=== PATIENT | female | born 2000 | race African-American/Black ===

== ENCOUNTER 2023-06-10 20:45 | Outpatient (REF) | payer OTHER, SELFPAY ==
[2023-06-14 14:11] LABS: Age Gdln ACOG Testing Note (.); IGP, rfx Aptima HPV ASCU Note (.)
== END 2023-06-10 20:46 | disposition home or self-care (01) ==
LOC: LAB 20:45
PROVIDERS: PCP Family Medicine; Visit Provider Obstetrics & Gynecology
DX: Z01.419 Encounter for gynecological examination (general) (routine) without abnormal findings (principal)
CPT/HCPCS: G0145

== ENCOUNTER 2024-07-27 20:20 | Outpatient (REF) | payer OTHER, SELFPAY ==
--- OUTSIDE RECORDS SUMMARY | 2024-07-27 20:25 | XMS_ITS | CCD ---
Author Organization [facility] Care Team Providers Care Life Sciences Instructor Name Role Phone RAMU BEARD Admitting Unavailable RAMU BEARD Attending Unavailable GREGORY ROBBINS Primary Care Unavailable RAMU BEARD Consulting Unavailable CHASE CONNOLLY Consulting Unavailable Rachael Stringer Attending Unavailable Rachael Stringer Admitting Unavailable REGINA Stringer Attending Provider Gregory Robbins MD Primary Care Provider NOHEMI BEAR Attending Unavailable GREGORY ROBBINS Attending Unavailable GREGORY ROBBINS Attending Unavailable GREGORY ROBBINS Attending Unavailable GREGORY ROBBINS Attending Unavailable GREGORY ROBBINS Attending Unavailable Medications Current Medications Medication Drug Class(es) Dates Sig (Normalized) Sig (Original) drospirenone 3 mg / ethinyl estradiol 0.02 mg oral tablet (8 sources) Progestin, Estrogen Start: 02-17-2024 drospirenone-ethi nyl estradiol (Myranda, Gianvi) 3-0.02 MG tablet Indications: Encounter for female family planning counseling Take 1 tablet by mouth Daily 84 tablet 3 02/17/2024 Active fluconazole 150 mg oral tablet (1 source) Azole Antifungal Start: 02-23-2024 Fluconazole Active 150 MG PO Q3D 2 0 February 23, 2024 12:00am may repeat x 1 in 3 days if needed hydrOXYzine hydrochloride 25 mg oral tablet (10 sources) Antihistamine take 1 tablet by mouth four times daily as needed hydrOXYzine HCl (Atarax) 25 MG tablet Take 25 mg by mouth 4 (four) times a day as needed for itching Active Norgestimate-Ethinyl Estradiol (Tri-Lo-Sarita) 0.18/0.215/0.25 mg-25 mcg tablet (2 sources) Start: 02-23-2024 take 1 tablet by mouth once daily Norgestimate-Ethi nyl Estradiol (Tri-Lo-Sarita) 0.18/0.215/0.25 mg-25 mcg tablet Active TAB PO Daily February 23, 2024 12:00am omeprazole 20 mg delayed release oral capsule (6 sources) Proton Pump Inhibitor Start: 02-23-2024 take 20 mg by mouth once daily Omeprazole Active 20 MG PO Daily February 23, 2024 12:00am Start: 10-10-2023 End: 02-17-2024 take 1 capsule by mouth before mealtime omeprazole (PriLOSEC) [address] capsule Indications: Chronic superficial 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 Take 1 capsule (40 mg) by mouth in the morning. Take before meals. Do not crush or chew.. 30 capsule 3 10/10/2023 02/17/2024 Discontinued phenazopyridine hydrochloride 200 mg oral tablet (1 source) Start: 02-23-2024 take 1 tablet by mouth three times daily Phenazopyridine (Pyridium) 200 mg tablet Active 200 MG PO Three times daily 01 20February 23, 2024 12:00am phentermine hydrochloride 37.5 mg oral tablet (16 sources) Sympathomimetic Amine Anorectic Start: 11-15-2023 End: 06-08-2024 take 30-30.9 tablets by mouth before mealtime phentermine (Adipex-P) 37.5 MG tablet Indications: Class 1 obesity due to excess calories without serious comorbidity with body mass index (BMI) of 30.0 to 30.9 in adult Take 1 tablet (37.5 mg) by mouth in the morning. Take before meals. 30 tablet 04/15/2024 06/08/2024 Discontinued sulfamethoxazole 800 mg / trimethoprim 160 mg oral tablet (1 source) Dihydrofolate Reductase Inhibitor Antibacterial, Sulfonamide Antimicrobial Start: 02-23-2024 take 1 tablet by mouth every twelve hours Sulfamethoxazole-Tr imethoprim Active 1 TAB PO Every 12 hours 02 21February 23, 2024 12:00am Completed/Discontinued Medications Medication Drug Class(es) Dates Sig (Normalized) Sig (Original) Ethinyl Estradiol / norgestimate (5 sources) Progestin, Estrogen Start: 01-23-2024 End: 02-17-2024 take 1 tablet by mouth once daily norgestimate-ethiny l estradiol (Rup-Cx-Cchzzyey) 0.18/0.215/0.25 MG-25 MCG tablet Indications: Encounter for female family planning counseling Take 1 tablet by mouth Daily 28 tablet 12 01/23/2024 02/17/2024 Discontinued Start: 01-23-2024 take 1 tablet by nick th once daily norgestimate-ethinyl estradiol (Tuc-Rn-Kphfccxm) 0.18/0.215/0.25 MG-25 MCG tablet Indications: Encounter for female family planning counseling Take 1 tablet by mouth Daily 28 tablet 12 01/23/2024 Active End: 01-23-2024 take 1 tablet by mouth in the morning norgestimate-ethinyl estradiol (Mlz-Pa-Hdggiagl) 0.18/0.215/0.25 MG-25 MCG tablet Take 1 tablet by mouth in the morning. 01/23/2024 Discontinued (Reorder) Problems Active Problems Problem Classification Problem Date Documented Da te Episodic/Chronic Anxiety disorders (16 sources) Generalized anxiety disorder; Translations: [Generalized anxiety disorder] Onset: 06-03-2023 06-03-2023 Chronic Gastritis and duodenitis (12 sources) Chronic superficial gastritis; Translations: [Chronic superficial 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] Onset: 10-10-2023 10-10-2023 Chronic Genitourinary symptoms and ill-defined conditions (1 source) Dysuria; Translations: [Dysuria] Onset: 02-23-2024 Episodic Other nutritional; endocrine; and metabolic disorders (7 sources) Body mass index 30+ - obesity; Translations: [Obesity, unspecified] Onset: 10-10-2023 10-10-2023 Chronic Other nutritional; endocrine; and metabolic disorders (5 sources) Obesity caused by energy imbalance; Translations: [Class 1 obesity due to excess calories without serious comorbidity with body mass index (BMI) of 30.0 to 30.9 in adult] Onset: 10-10-2023 04-15-2024 Chronic Other nutritional; endocrine; and metabolic disorders (4 sources) Body mass index 25-29 - overweight; Translations: [Overweight] Onset: 10-10-2023 06-08-2024 Episodic Urinary tract infections (2 sources) Acute urinary tract infection; Translations: [Urinary tract infection, site not specified] 02-23-2024 Episodic Past or Other Problems Problem Classification Problem Date Documented Da te Episodic/Chronic Abdominal pain (14 sources) Epigastric pain; Translations: [Epigastric discomfort] Onset: 07-02-2018 Resolved: 02-17-2024 02-17-2024 Episodic Contraceptive and procreative management (11 sources) Patient encounter status; Translations: [Encounter for other general counseling and advice on contraception] Onset: 02-17-2024 02-17-2024 Episodic Mood disorders (10 sources) Recurrent major depression in full remission; Translations: [Major depressive disorder, recurrent, in full remission] Onset: 06-03-2023 Resolved: 11-15-2023 11-15-2023 Chronic Other gastrointestinal disorders (1 source) Diarrhea, unspecified; Translations: [DIARRHEA UNSPECIFIED] Onset: 07-08-2018 Episodic Other nutritional; endocrine; and metabolic disorders (1 source) Abnormal weight loss; Translations: [ABNORMAL WEIGHT LOSS] Onset: 07-08-2018 Episodic Results Test Name Value Interpretation Reference Range Facil ity Urine Cultureon 02-23-2024 Bacteria identified Cx Nom (U) 20,000 colonies/ml mixed bacterial skin contaminants including mixed gram negative bacilli - 2 Days PERFORMED BY: [place] [address] PATHOLOGIST FORESTRY PILOT FLACO HUNTER M.D. Normal [facility] Comment on above: Performed By: #### C UU #### [address] PREG HCG QUALon 07-02-2018 , QUAL Negative Normal NEGATIVE [facility] Comment on above: Performed By: #### P REG #### [facility] [address] [address] Bia Guillaume Vital Signs Date Time Vital Sign Value Performing Clinician Facility 06-08-2024 10:02-0500 Body height 149.9 cm Gregory Robbins MD Work Phone: [facility] 06-08-2024 10:02-0500 Body mass index (BMI) [Ratio] 29.89 kg/m2 Gregory Robbins MD Work Phone: [facility] 01-20-2025 10:02-0500 Body temperature 97.11 [degF] Gregory Robbins MD Work Phone: [facility] 06-08-2024 10:02-0500 Body weight 67.13 kg Gregory Robbins MD Work Phone: [facility] 06-08-2024 10:02-0500 Diastolic blood pressure 68 mm[Hg] Gregory Robbins MD Work Phone: [facility] 06-08-2024 10:02-0500 Heart rate 101 /min Gregory Robbins MD Work Phone: [facility] 06-08-2024 10:02-0500 Respiratory rate 16 /min Gregory Robbins MD Work Phone: [facility] 06-08-2024 10:02-0500 SaO2% (BldA) [Mass fraction] 99 % Gregory Robbins MD Work Phone: [facility] 06-08-2024 10:02-0500 Systolic blood pressure 118 mm[Hg] Gregory Robbins MD Work Phone: [facility] 04-15-2024 09:41-0500 Body height 149.9 cm Gregory Robbins MD Work Phone: [facility] 04-15-2024 09:41-0500 Body mass index (BMI) [Ratio] 29.08 kg/m2 Gregory Robbins MD Work Phone: [facility] 04-15-2024 09:41-0500 Body temperature 97.5 [degF] Gregory Robbins MD Work Phone: [facility] 04-15-2024 09:41-0500 Body weight 65.32 kg Gregory Robbins MD Work Phone: [facility] 04-15-2024 09:41-0500 Diastolic blood pressure 60 mm[Hg] Gregory Robbins MD Work Phone: [facility] 04-15-2024 09:41-0500 Heart rate 94 /min Gregory Robbins MD Work Phone: [facility] 04-15-2024 09:41-0500 Respiratory rate 20 /min Gregory Robbins MD Work Phone: [facility] 04-15-2024 09:41-0500 SaO2% (BldA) [Mass fraction] 99 % Gregory Robbins MD Work Phone: [facility] 04-15-2024 09:41-0500 Systolic blood pressure 110 mm[Hg] Gregory Robbins MD Work Phone: [facility] 02-23-2024 14:28-0400 Body height 149.86 cm [facility] 02-23-2024 14:28-0400 Body mass index (BMI) [Ratio] 29.1 kg/m2 [facility] 02-23-2024 14:28-0400 Body temperature 98 [degF] [facility] 02-23-2024 14:28-0400 Body weight 65.43 kg [facility] 02-23-2024 14:28-0400 Diastolic blood pressure 73 mm[Hg] [facility] 02-23-2024 14:28-0400 Heart rate 110 /min [facility] 02-23-2024 14:28-0400 SaO2% (BldA) [Mass fraction] 99 % [facility] 02-23-2024 14:28-0400 Systolic blood pressure 105 mm[Hg] [facility] 02-17-2024 14:00-0400 Body height 149.9 cm Gregory Robbins MD Work Phone: [facility] 02-17-2024 14:00-0400 Body mass index (BMI) [Ratio] 30.3 kg/m2 Gregory Robbins MD Work Phone: [facility] 02-17-2024 14:00-0400 Body temperature 97.81 [degF] Gregory Robbins MD Work Phone: [facility] 02-17-2024 14:00-0400 Body weight 68.04 kg Gregory Robbins MD Work Phone: [facility] 02-17-2024 14:00-0400 Diastolic blood pressure 68 mm[Hg] Gregory Robbins MD Work Phone: [facility] 02-17-2024 14:00-0400 Heart rate 82 /min Gregory Robbins MD Work Phone: [facility] 02-17-2024 14:00-0400 Respiratory rate 20 /min Gregory Robbins MD Work Phone: [facility] 02-17-2024 14:00-0400 SaO2% (BldA) [Mass fraction] 99 % Gregory Robbins MD Work Phone: [facility] 02-17-2024 14:00-0400 Systolic blood pressure 110 mm[Hg] Gregory Robbins MD Work Phone: [facility] Encounters Encounter Date Encounter Type Care Provider Facility Start: 06-08-2024 End: 06-08-2024 Bamboo flowsheet Gregory Robbins MD Work Phone: [facility] Start: 06-08-2024 End: 06-08-2024 Bamboo flowsheet Gregory Robbins MD Work Phone: [facility] Start: 06-08-2024 End: 06-08-2024 Office outpatient visit 15 minutes Gregory Robbins MD Work Phone: [facility] Comment on above: MICHELLE (generalized anx iety disorder) ([facility]) (Primary Dx); Overweight (BMI 25.0-29.9) Start: 06-08-2024 End: 06-08-2024 ambulatory GREGORY ROBBINS Not Available Start: 04-15-2024 End: 04-15-2024 Bamboo flowsheet Gregory Robbins MD Work Phone: [facility] Start: 04-15-2024 End: 04-15-2024 Bamboo flowsheet Gregory Robbins MD Work Phone: [facility] Start: 04-15-2024 End: 04-15-2024 Office outpatient visit 25 minutes Gregory Robbins MD Work Phone: [facility] Comment on above: MICHELLE (generalized anx iety disorder) (CMS/HCC) (Primary Dx); Class 1 obesity due to excess calories without serious comorbidity with body mass index (BMI) of 30.0 to 30.9 in adult Start: 04-15-2024 End: 04-15-2024 ambulatory GREGORY ROBBINS Not Available Start: 02-23-2024 End: 02-23-2024 Departed Referred DESKTOP PUBLISHING OPERATOR Rachael Stringer Work Phone: [facility] [place] Work Phone: Start: 02-23-2024 End: 02-23-2024 ambulatory Rachael Stringer Facility:[facility] Start: 02-23-2024 End: 02-23-2024 Patient encounter procedure [facility] Work Phone: Start: 02-17-2024 End: 02-17-2024 Bamboo flowsheet Gregory Robbins MD Work Phone: [facility] Start: 02-17-2024 End: 02-17-2024 Bamboo flowsheet Gregory Robbins MD Work Phone: [facility] Start: 02-17-2024 End: 02-17-2024 Office outpatient visit 25 minutes Gregory Robbins MD Work Phone: [facility] Comment on above: MICHELLE (generalized anx iety disorder) (CMS/HCC) (Primary Dx); Chronic superficial 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; Obesity (BMI 30-39.9); Encounter for female family planning counseling Start: 02-17-2024 End: 02-17-2024 ambulatory GREGORY ROBBINS Not Available Start: 01-23-2024 End: 01-23-2024 Orders Only Gregory Robbins MD Work Phone: [facility] Comment on above: Encounter for female family planning counseling (Primary Dx) Start: 11-15-2023 End: 11-15-2023 ambulatory GREGORY ROBBINS Not Available Start: 10-10-2023 End: 10-10-2023 ambulatory GREGORY ROBBINS Not Available Start: 06-10-2023 End: 06-10-2023 ambulatory NOHEMI MARIANELA Not Available Start: 06-03-2023 Patient encounter procedure Gregory Robbins MD Work Phone: [facility] Start: 07-02-2018 End: 07-02-2018 Patient encounter procedure RAMU BEARD Facility: Plan of Treatment Date Care Activity Detail Author Start: 12-07-2024 End: 12-07-2024 Patient encounter procedure 12/07/2024 10:00 AM EDT Office Visit [facility] [address] [place] [id number] Gregory Robbins MD [address] [place] [phone] [facility] Start: 06-08-2024 End: 06-08-2024 Patient encounter procedure [facility] Comment on above: Arrived Start: 04-15-2024 End: 04-15-2024 Patient encounter procedure 04/15/2024 1:45 PM EST Office Visit [facility] [address] [place] [phone] Gregory Robbins MD [address] [place] [phone] [facility] Start: 04-15-2024 End: 04-15-2024 Patient encounter procedure [facility] Comment on above: Arrived Start: 02-24-2024 Urine culture [facility] Start: 02-23-2024 Bacteria identified in Urine by Culture Urine Culture [facility] Start: 02-17-2024 End: 02-17-2024 Patient encounter procedure 02/17/2024 2:00 PM EDT Office Visit [facility] [address] [place] [phone] Gregory Robbins MD [address] [place] [address] Arrived [facility] Comment on above: Arrived Start: 01-19-2024 Influenza vaccination Influenz a Vaccine (#1) [facility] Urine culture [facility] Payers Date Payer Category Payer Self-pay 2023 Medicaid [employer] [facility] [id number] 2023-Present [address] [address] [place] [address] [id number] 2023 Medicaid (Managed Care) [id number]. [id number] 2023 Medicaid [id number] 2021 Private Health Insurance [id number] 2021 Private Health Insurance [id number] 2001 Unknown [id number] 2001 Unknown [id number] 2001 Unknown [id number] 2001 Unknown [id number] [id number] 2001 Unknown [id number] 2001 Unknown [id number] 1259 1977 Unknown [id number] 1959 Private Health Insurance [id number] Private Health Insurance [id number] Unknown [id number] Social History Date Type Detail Facility Start: 02-23-2024 Tobacco smoking status MDIS Ex-smoker (finding) [facility] Start: 2001 Sex Assigned At Female [facility] Start: 06-03-2023 Tobacco smoking status MDIS Never smoked tobacco [facility] Start: 06-03-2023 Tobacco use and exposure Smokeless tobacco non-user [facility] Start: 10-09-2023 End: 06-08-2024 History of Social function [facility] Start: 10-09-2023 End: 06-08-2024 Social connection and isolation panel [facility] Do you belong to any clubs or organizations such as nondenominational groups, unions, fraternal or athletic groups, or school groups? No [facility] Are you now , , , , never or living with a partner? Patient declined [facility] How often to you hav e a drink containing alcohol? 2-3 time sa week [facility] (I/We) worried wheth er (my/our) food would run out before (I/we) got money to buy more. Never true [facility] Start: 09-27-2022 Gender identity Identifies as female gender (finding) [facility] Start: 09-27-2022 Sexual orientation Choose not to disclose [facility] History of Present illness Narrative 06-08-2024 Gregory Robbins MD - 06/08/2024 10:38 AM Charleen Robbins MD - 06/08/2024 10:38 AM Charleen Robbins MD - 06/08/2024 10:15 AM EST Note Date & Type Note Facility 06-08-2024 History of Presen t illness Narrative Associated Problem(s): Overweight (BMI 25.0-29.9) Discussed proper diet and regular aerobic exercise. Recommend Weight Watchers and need to limit calories and smaller portions. Need to increase activity and regular aerobic exercise several days a week for 30 minutes at a time. Associated Problem(s): MICHELLE (generalized anxiety disorder) (CMS/HCC) Mild symptoms and continue hydroxyzine PRN. Images from the original note were not included. Subjective Patient ID: Chucky Sutherland is a 23 y.o. female who presents for Follow-up (Adipex follow up). Follow up anxiety and weight. Patient stable today. Anxiety stable. Not as stressed out or overwhelmed. Not as nervous or worry as much. Not as moctezuma or irritable. Using hydroxyzine PRN and helps when needed. Weight up 4 pounds. Not on adipex and developed anxiety with medication. Tried half but no change in appetite. Currently not active or exercising. Tries to watch diet and eat healthy. Increased fruits and vegetables. Smaller portions and limits snacking. Tries to limit total daily calories. Review of Systems Respiratory: Negative for cough, shortness of breath and wheezing. Cardiovascular: Negative for chest pain and palpitations. Gastrointestinal: Negative for abdominal pain, diarrhea, nausea and vomiting. Genitourinary: Negative for dysuria. Objective Physical Exam Constitutional: General: She is not in acute distress. Appearance: Normal appearance. HENT: Head: Normocephalic. Right Ear: Tympanic membrane normal. Left Ear: Tympanic membrane normal. Eyes: Extraocular Movements: Extraocular movements intact. Pupils: Pupils are equal, round, and reactive to light. Cardiovascular: Rate and Rhythm: Normal rate and regular rhythm. Heart sounds: No murmur heard. No friction rub. No gallop. Pulmonary: Effort: Pulmonary effort is normal. Breath sounds: Normal breath sounds. No wheezing, rhonchi or rales. Abdominal: General: Bowel sounds are normal. There is no distension. Palpations: Abdomen is soft. Tenderness: There is no abdominal tenderness. There is no guarding or rebound. Musculoskeletal: Cervical back: Neck supple. Right lower leg: No edema. Left lower leg: No edema. Neurological: Mental Status: She is alert. Assessment/Plan Problem List Items Addressed This Visit MICHELLE (generalized anxiety disorder) (CMS/HCC) - Primary Mild symptoms and continue hydroxyzine PRN. Overweight (BMI 25.0-29.9) Discussed proper diet and regular aerobic exercise. Recommend Weight Watchers and need to limit calories and smaller portions. Need to increase activity and regular aerobic exercise several days a week for 30 minutes at a time. documented in this encounter [facility] History of Present illness Narrative 04-15-2024 Gregory Robbins MD - 04/15/2024 10:16 AM Charleen Robbins MD - 04/15/2024 10:16 AM Charleen Robbins MD - 04/15/2024 9:15 AM EST Note Date & Type Note Facility 04-15-2024 History of Presen t illness Narrative Associated Problem(s): MICHELLE (generalized anxiety disorder) ([facility]) Mild symptoms and continue hydroxyzine PRN. Associated Problem(s): Class 1 obesity due to excess calories without serious comorbidity with body mass index (BMI) of 30.0 to 30.9 in adult Patient doing well with adipex and lost 6 pounds since last visit. Tolerating well with only mild dry mouth. Continue with dietary changes and less calories. Need to limit snacking and smaller portions. Continue healthier choices. Need regular aerobic exercise 30 minutes at a time 5-6 days a week. Refill for another month. OARRS reviewed. Continue meds as prescribed. If develop new or worsening symptoms contact office. Images from the original note were not included. Subjective Patient ID: Chucky Sutherland is a 23 y.o. female who presents for Follow-up (2 m). Follow up anxiety and weight. Anxiety stable. Not as stressed out or overwhelmed. Not as nervous or worry as much. Not as moctezuma or irritable. Using hydroxyzine PRN and helps. Started adipex and weight down 6 pounds. Not taking daily because causes insomnia. Did not try hydroxyzine at bedtime. Not as hungry with medication. Smaller portions and not snacking. Increased fruits and vegetables. Tries to limit total daily calories. Increased activity and walking almost daily. Review of Systems Respiratory: Negative for cough, shortness of breath and wheezing. Cardiovascular: Negative for chest pain and palpitations. Gastrointestinal: Negative for abdominal pain, diarrhea, nausea and vomiting. Genitourinary: Negative for dysuria. Objective Physical Exam Constitutional: General: She is not in acute distress. Appearance: Normal appearance. HENT: Head: Normocephalic. Right Ear: Tympanic membrane normal. Left Ear: Tympanic membrane normal. Eyes: Extraocular Movements: Extraocular movements intact. Pupils: Pupils are equal, round, and reactive to light. Cardiovascular: Rate and Rhythm: Normal rate and regular rhythm. Heart sounds: No murmur heard. No friction rub. No gallop. Pulmonary: Effort: Pulmonary effort is normal. Breath sounds: Normal breath sounds. No wheezing, rhonchi or rales. Abdominal: General: Bowel sounds are normal. There is no distension. Palpations: Abdomen is soft. Tenderness: There is no abdominal tenderness. There is no guarding or rebound. Musculoskeletal: Cervical back: Neck supple. Right lower leg: No edema. Left lower leg: No edema. Neurological: Mental Status: She is alert. Assessment/Plan Problem List Items Addressed This Visit MICHELLE (generalized anxiety disorder) ([facility]) - Primary Mild symptoms and continue hydroxyzine PRN. Class 1 obesity due to excess calories without serious comorbidity with body mass index (BMI) of 30.0 to 30.9 in adult Patient doing well with adipex and lost 6 pounds since last visit. Tolerating well with only mild dry mouth. Continue with dietary changes and less calories. Need to limit snacking and smaller portions. Continue healthier choices. Need regular aerobic exercise 30 minutes at a time 5-6 days a week. Refill for another month. OARRS reviewed. Continue meds as prescribed. If develop new or worsening symptoms contact office. documented in this encounter [facility] History of Present illness Narrative 02-17-2024 Gregory Robbins MD - 02/17/2024 2:42 PM Josie Robbins MD - 02/17/2024 2:41 PM Josei Robbins MD - 02/17/2024 2:41 PM Josie Robbins MD - 02/17/2024 2:00 PM EDT Note Date & Type Note Facility 02-17-2024 History of Presen t illness Narrative Associated Problem(s): Obesity (BMI 30-39.9) Patient doing well with adipex and lost 7 pounds in 3 months. Tolerating well with only mild dry mouth. Continue with dietary changes and less calories. Need to limit snacking and smaller portions. Continue healthier choices. Need regular aerobic exercise 30 minutes at a time 5-6 days a week. Refill for another month. OARRS reviewed. Continue meds as prescribed. If develop new or worsening symptoms contact office. Associated Problem(s): MICHELLE (generalized anxiety disorder) ([facility]) Mild symptoms and continue hydroxyzine PRN. Associated Problem(s): Chronic superficial 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 Symptoms controlled with omeprazole and continue. Avoid foods that trigger symptoms. Images from the original note were not included. Subjective Patient ID: Chucky Sutherland is a 23 y.o. female who presents for Follow-up (Adipex/ control). Follow up anxiety, gastritis, and weight. Anxiety stable. Not as stressed out or overwhelmed. Not as nervous or worry as much. Not as [place] or irritable. Not needed hydroxyzine for several months. Gastritis controlled with omeprazole. Denies epigastric pain or burning and not waking up with symptoms. Weight down 7 pounds since starting adipex. Tolerating medication without side effects except mild dry mouth. Not as hungry with medication. Smaller portions and not snacking. Increased fruits and vegetables. Tries to limit total daily calories. Increased activity and walking almost daily. Review of Systems Respiratory: Negative for cough, shortness of breath and wheezing. Cardiovascular: Negative for chest pain and palpitations. Gastrointestinal: Negative for abdominal pain, diarrhea, nausea and vomiting. Genitourinary: Negative for dysuria. Objective Physical Exam Constitutional: General: She is not in acute distress. Appearance: Normal appearance. HENT: Head: Normocephalic. Right Ear: Tympanic membrane normal. Left Ear: Tympanic membrane normal. Eyes: Extraocular Movements: Extraocular movements intact. Pupils: Pupils are equal, round, and reactive to light. Cardiovascular: Rate and Rhythm: Normal rate and regular rhythm. Heart sounds: No murmur heard. No friction rub. No gallop. Pulmonary: Effort: Pulmonary effort is normal. Breath sounds: Normal breath sounds. No wheezing, rhonchi or rales. Abdominal: General: Bowel sounds are normal. There is no distension. Palpations: Abdomen is soft. Tenderness: There is no abdominal tenderness. There is no guarding or rebound. Musculoskeletal: Cervical back: Neck supple. Right lower leg: No edema. Left lower leg: No edema. Neurological: Mental Status: She is alert. Assessment/Plan Problem List Items Addressed This Visit MICHELLE (generalized anxiety disorder) ([facility]) - Primary Mild symptoms and continue hydroxyzine PRN. Chronic superficial 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 Symptoms controlled with omeprazole and continue. Avoid foods that trigger symptoms. Obesity (BMI 30-39.9) Patient doing well with adipex and lost 7 pounds in 3 months. Tolerating well with only mild dry mouth. Continue with dietary changes and less calories. Need to limit snacking and smaller portions. Continue healthier choices. Need regular aerobic exercise 30 minutes at a time 5-6 days a week. Refill for another month. OARRS reviewed. Continue meds as prescribed. If develop new or worsening symptoms contact office. Encounter for female family planning counseling Relevant Medications drospirenone-ethinyl estradiol (Shlomo Whitmore) 3-0.02 MG tablet documented in this encounter [facility] Evaluation note Note Date & Type Note Facility Evaluation note No assessment information [facility] Work Phone: Evaluation note Note Date & Type Note Facility Evaluation note Diagnosis Onset Date Acute UTI (urinary tract infection) acute [facility] Work Phone: Evaluation note Note Date & Type Note Facility Evaluation note Diagnosis Annual physical exam- Primary Routine general medical examination at a health care facility Chronic superficial 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- Primary Abdominal discomfort, epigastric MDD (major depressive disorder), recurrent, in full remission ([facility]) MICHELLE (generalized anxiety disorder) ([facility]) Generalized anxiety disorder Obesity (BMI 30-39.9) Chronic superficial 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- Primary MICHELLE (generalized anxiety disorder) ([facility]) Generalized anxiety disorder Obesity (BMI 30-39.9) MICHELLE (generalized anxiety disorder) ([facility])- Primary Generalized anxiety disorder Chronic superficial 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 Obesity (BMI 30-39.9) Encounter for female family planning counseling MICHELLE (generalized anxiety disorder) ([facility])- Primary Generalized anxiety disorder Class 1 obesity due to excess calories without serious comorbidity with body mass index (BMI) of 30.0 to 30.9 in adult documented in this encounter [facility] Evaluation note Note Date & Type Note Facility Evaluation note Diagnosis Encounter for female family planning counseling- Primary documented in this encounter [facility] Evaluation note Note Date & Type Note Facility Evaluation note Diagnosis MICHELLE (generalized anxiety disorder) ([facility])- Primary Generalized anxiety disorder Chronic superficial 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 Obesity (BMI 30-39.9) Encounter for female family planning counseling documented in this encounter [facility] Evaluation note Note Date & Type Note Facility Evaluation note Diagnosis Annual physical exam- Primary Routine general medical examination at a health care facility Chronic superficial 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- Primary Abdominal discomfort, epigastric MDD (major depressive disorder), recurrent, in full remission ([facility]) MICHELLE (generalized anxiety disorder) ([facility]) Generalized anxiety disorder Obesity (BMI 30-39.9) Chronic superficial 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- Primary MICHELLE (generalized anxiety disorder) ([facility]) Generalized anxiety disorder Obesity (BMI 30-39.9) MICHELLE (generalized anxiety disorder) ([facility])- Primary Generalized anxiety disorder Chronic superficial 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 Obesity (BMI 30-39.9) Encounter for female family planning counseling MICHELLE (generalized anxiety disorder) ([facility])- Primary Generalized anxiety disorder Class 1 obesity due to excess calories without serious comorbidity with body mass index (BMI) of 30.0 to 30.9 in adult MICHELLE (generalized anxiety disorder) ([facility])- Primary Generalized anxiety disorder Overweight (BMI 25.0-29.9) Overweight documented in this encounter [facility] Summary Purpose Family History No Family History Records Found Relationship Condition Age at Onset Recorded Date/T alejo mother Diabetes mellitus Unknown Advance Directives No Advanced Directives Records Found Advance Directive Response Recorded Date/ Time Advance Directives No February 23, 2024 2:24pm Procedure Findings Note OPERATIVE NOTE OPERATION KARLEE E: 07[birth year]02[birth year]18 ANESTHETIC:Propofol sedation per anesthesia department. PREOPERATIVE DIAGNOSIS: 1. Epigastric pain. 2. Dyspepsia. 3. Weight loss. 4. Diarrhea. POSTOPERATIVE DIAGNOSIS: 1. Normal EGD, random duodenal biopsies obtained to rule-out celiac sprue. 2. Normal colonoscopy to the terminal ileum, random colon biopsies obtained to rule-out microscopic colitis. PROCEDURE NAME: 1. EGD with biopsy. 2. Colonoscopy to the terminal ileum with biopsy. INDICATION: O2 oximetry. Hemodynamic monitoring performed pre, during and post procedures. The patient was identified, H AND P completed. The patient was given full explanation of the procedures as well as the patient's mother, was given full explanation of the procedures and associated risks and written consent was obtained prior to the procedures. The patient and the patient's mother expressed complete understanding of the procedures as well as alternatives to the procedures and anesthesia and agrees to proceed wit (more content not included)... Chief Complaint and Reason for Visit Chief Complaint Possible UTI Chief Complaint Possible UTI R30.0 Reason for Visit Acute UTI (urinary t ract infection) Additional Source Comments INFORMATION SOURCE (unrecogn ized section and content) DATE CREATED AUTHOR 12/28/2018 [facility] DATE CREATED AUTHOR AUTHOR'S ORGANIZ ATION 02/28/2024 [facility] DATE CREATED AUTHOR AUTHOR'S ORGANIZ ATION 06/09/2024 [facility] [employer] Care Teams (unrecognized sec tion and content) Team Status: Active Member Role Status Dates Gregory Robbins MD Primary Care Provider Active Team Status: Inactive Member Role Status Dates Gregory Robbins MD Primary Care Provider Active S tart: February 23, 2024 End: February 23, 2024 Rachael Stringer APRN Attending Provider Active Start: February 23, 2024 End: February 23, 2024 Team Status: Inactive Member Role Status Dates Rachael Stringer APRN Attending Provider Active Start: February 23, 2024 End: February 23, 2024 Life Sciences Instructor Relationship Specialty Start Date End Date Gregory Robbins MD [address] [place] [phone] PCP - General Family Medicine 10/10/23 Life Sciences Instructor Relationship Specialty Start Date End Date Gregory Robbins MD [address] [place] [phone] PCP - General Family Medicine 10/10/23 Life Sciences Instructor Relationship Specialty Start Date End Date Gregory Robbins MD [address] [place] [phone] PCP - General Family Medicine 10/10/23 Life Sciences Instructor Relationship Specialty Start Date End Date Gregory Robbins MD [address] [place] [phone] PCP - General Family Medicine 10/10/23 Life Sciences Instructor Relationship Specialty Start Date End Date Gregory Robbins MD [address] [place] [phone] PCP - General Family Medicine 10/10/23 Life Sciences Instructor Relationship Specialty Start Date End Date Gregory Robbins MD [address] [place] [phone] PCP - General Family Medicine 10/10/23 Life Sciences Instructor Relationship Specialty Start Date End Date Gregory Robbins MD [address] [place] [phone] PCP - General Family Medicine 10/10/23 Goals (unrecognized section and content) Goals may be documented in a n alternate sectionGoals may be documented in an alternate section Reason for Visit (unrecogniz ed section and content) Reason Comments Follow-up 2 m Reason Comments Follow-up AdipexBirth control Reason Comments Follow-up Adipex follow up FOR RECORDS PERTAINING TO PATIENTS WHO ARE OR HAVE BEEN ENROLLED IN A CHEMICAL DEPENDENCY/SUBSTANCEABUSE PROGRAM, SOME INFORMATION MAY BE OMITTED. This clinical summary was aggregated from multiple sources. Caution should be exercised in using it in the provision of clinical care. This summary normalizes information from multiple sources, and as a consequence, information in this document may materially change the coding, format and clinical context of patient data. In addition, data may be omitted in some cases. CLINICAL DECISIONS SHOULD BE BASED ON THE PRIMARY CLINICAL RECORDS. [employer] provides no warranty or guarantee of the accuracy or completeness of information in this document.
[2024-07-31 12:08] LABS: Age Gdln ACOG Testing Note (.); IGP, rfx Aptima HPV ASCU Note (.)
== END 2024-07-27 20:21 | disposition home or self-care (01) ==
LOC: LAB 20:20
PROVIDERS: PCP Family Medicine; Visit Provider Physician Assistant
DX: Z01.419 Encounter for gynecological examination (general) (routine) without abnormal findings (principal)
CPT/HCPCS: 88175